=== PATIENT | female | born 2000 | race Caucasian/White ===

== ENCOUNTER 2024-04-01 12:07 | Emergency (ER) | payer BC ==
[~2024-04-01] VITALS: Ht 170.2 cm; Wt 61.2 kg
[2024-04-01 12:34] VITALS: BP 151/99; TEMP 98.4; O2SAT 99
[2024-04-01] MEDS ORDERED: IBUPROFEN 600 MG TABLET ONE (12:34)
--- NOTE | 2024-04-01 12:35 | NUR ---
"I was playing contact sports and this [address] tackled me Pop Right knee"
[2024-04-01] MEDS: IBUPROFEN 600 MG TABLET PO ONE (12:37)
--- NOTE | 2024-04-01 12:37 | NUR ---
Medicated as ordered. SEE eMAR
--- NOTE | 2024-04-01 12:42 | NUR ---
xray at bedside
[2024-04-01] MEDS ORDERED: IBUP-1953 PO (13:15)
--- NOTE | 2024-04-01 13:39 | NUR ---
Knee brace as ordere. Pt for discharge- Patient discharged to home in stable condition. Written and verbal after care instructions given. Patient verbalizes understanding of instruction.
== END 2024-04-01 13:38 | disposition home or self-care (01) ==
LOC: ER 12:07
DX: S83.8X1A Sprain of other specified parts of right knee, initial encounter (principal); X50.1XXA Overexertion from prolonged static or awkward postures, initial encounter; Y93.89 Activity, other specified; Y92.89 Other specified places as the place of occurrence of the external cause; Y99.8 Other external cause status
CPT/HCPCS: 73564-TC